=== PATIENT | male | born 1990 | race Caucasian/White ===

== ENCOUNTER 2019-03-21 21:00 | Emergency (ER) | payer OTHER ==
[2019-03-21] MEDS ORDERED: PREDNISONE 20 MG TABLET PO ONE (22:35)
[2019-03-21] MEDS ORDERED: EPINEPHRINE INJ/PF 1 MG/1 ML AMPULE IM ONE (22:35)
--- NOTE | 2019-03-21 22:40 | ER Document Report ---
ED Medical Screen (RME) - General Chief Complaint: Allergic Reaction Stated Complaint: POSSIBLE ALLERGIC REACTION Time Seen by Provider: 03/21/19 22:35 Notes: 28-year-old male chief complaint of allergic reaction. He reports swelling around his eyes, worse on the right, he woke up with this this morning, he took 50 mg of Benadryl around noon, he has not noticed improvement. He also has a faint rash along his forearms. He states he was out in the [place] [employer]. Denies difficulty breathing or swallowing. - Related Data Allergies/Adverse Reactions: No Known Allergies Allergy (Unverified 03/21/19 22:24) Past Medical History - Social History Frequency of alcohol use: Rare Drug Abuse: None Renal/ Medical History: Denies: Hx Peritoneal Dialysis Physical Exam - Vital signs Vitals: Temp Pulse Resp BP Pulse Ox 98.2 F 60 16 120/65 96 03/21/19 21:30 03/21/19 21:30 03/21/19 21:30 03/21/19 21:30 03/21/19 21:30 - HEENT Eyes: Other - Periorbital swelling of the eyelids and soft tissue, does not appear to have ocular involvement. Mouth/Lips: Normal. No: Angioedema Pharynx: No: Uvular edema, Potential airway comprom. Course - Re-evaluation Re-evalutation: Discussed with patient, will place on both steroids because he was crawling around in the [place] and given epinephrine because of his obvious facial/eyelid swelling though his airway is clear. I have greeted and performed a rapid initial assessment of this patient. A comprehensive ED assessment and evaluation of the patient, analysis of test results and completion of the medical decision making process will be conducted by additional ED providers. - Vital Signs Vital signs: Temp Pulse Resp BP Pulse Ox 98.2 F 60 16 120/65 96 03/21/19 21:30 03/21/19 21:30 03/21/19 21:30 03/21/19 21:30 03/21/19 21:30
--- NOTE | 2019-03-21 23:32 | ER Document Report ---
ED General - General Chief Complaint: Allergic Reaction Stated Complaint: POSSIBLE ALLERGIC REACTION Time Seen by Provider: 03/21/19 22:35 Notes: Patient is a pleasant 28-year-old male presents with complaint of some swelling around the eyes as well as rash that is pruritic. Rash is laying on the arms and lower torso. No tongue or lip swelling. No difficulty breathing or swallowing. Patient said yesterday was playing paintball was going around the [place]. He also stated a hotel and used a new kind of soap. He is unsure which one might of caused his symptoms. He did take some Benadryl at home. He has no other complaints at this time. - Related Data Allergies/Adverse Reactions: No Known Allergies Allergy (Unverified 03/21/19 22:24) Past Medical History - Social History Smoking Status: Former Smoker Frequency of alcohol use: Rare Drug Abuse: None Family History: Reviewed & Not Pertinent Patient has suicidal ideation: No Patient has homicidal ideation: No Renal/ Medical History: Denies: Hx Peritoneal Dialysis Review of Systems - Review of Systems Notes: My Normal Review Basic REVIEW OF SYSTEMS: CONSTITUTIONAL : Denies fever, chills, or sweats. Denies recent illness. EENT: Swelling around the eyes. No throat or tongue swelling. CARDIOVASCULAR: Denies chest pain. RESPIRATORY: Denies cough, cold, or chest congestion. Denies shortness of breath, difficulty breathing, or wheezing. GASTROINTESTINAL: Denies abdominal pain. Denies nausea, vomiting, or diarrhea. MUSCULOSKELETAL: Denies neck or back pain or joint pain or swelling. SKIN: Rash NEUROLOGICAL: Denies altered mental status or loss of consciousness. ALL OTHER SYSTEMS REVIEWED AND NEGATIVE. Physical Exam - Vital signs Vitals: Temp Pulse Resp BP Pulse Ox 98.2 F 60 16 120/65 96 03/21/19 21:30 03/21/19 21:30 03/21/19 21:30 03/21/19 21:30 03/21/19 21:30 - Notes Notes: General Appearance: Well nourished, alert, cooperative, no acute distress, no obvious discomfort. Well-appearing. Vitals: reviewed, See vital signs table. Head: no swelling or tenderness to the head Eyes: PERRL, EOMI, Conjuctiva clear. Faint redness and swelling to the eyelids. Mouth: No decreasd moisture Throat: No tonsillar inflammation, No airway obstruction, no pharyngeal or glossal swelling. Neck: Supple, no neck tenderness, No neck swelling Lungs: No wheezing, No rales, No rhonci, No accessory muscle use, good air exchange bilaterally. Heart: Normal rate, Regular rythm, No murmur, no rub Extremities: strength 5/5 in all extremities, good pulses in all extremities, no swelling or tenderness in the extremities, no edema. Skin: Small areas of faint redness that is easily blanchable and pruritic at over the arms as well as over the lower torso and flank. No blistering. Neuro: speech clear, oriented x 3, normal affect, responds appropriately to questions. Course - Re-evaluation Re-evalutation: 03/21/19 23:32 Patient has findings consistent with allergic reaction. Potentially is allergic to something that he can contact with and with such as poison hawa. Could also be reaction to soap. He does not have any signs of impending airway compromise. There is no lip or tongue swelling. No difficulty breathing or swallowing. He does have obvious swelling around the eyes. I encouraged him use antihistamine eyedrops. We will place him on tapering prednisone. Have him take Benadryl every 6 hours as needed for itching. I strongly encouraged him return to ER if he has any tongue or lip swelling, worsening of his rash or swelling around the eyes, or if he has any difficulty breathing whatsoever. Patient agrees with plan and will be discharged home. Dictation of this chart was performed using voice recognition software; therefore, there may be some unintended grammatical errors. - Vital Signs Vital signs: Temp Pulse Resp BP Pulse Ox 98.2 F 60 16 120/65 96 03/21/19 21:30 03/21/19 21:30 03/21/19 21:30 03/21/19 21:30 03/21/19 21:30 Discharge - Discharge Clinical Impression: Allergic reaction Qualifiers: Encounter type: initial encounter Qualified Code(s): T78.40XA - Allergy, unspecified, initial encounter Condition: Good Disposition: HOME, SELF-CARE Additional Instructions: Please take the prednisone as prescribed. You can also buy [id number] antihistamine eyedrops. These sometimes help with the swelling around the eyes. The 2 brands that are common are Zaditor and Allaway. I have also prescribed an EpiPen to use in case you have throat or tongue swelling. Please return to the ER immediately if you have to use theEpi pen, have facial swelling, tongue swelling, throat swelling, difficulty breathing, or feel that your reaction is becoming severe. Please use the Epi pen if you have any facial swelling, tongue swelling, or difficulty breathing. Take Benadryl 50 mg every 6 hours as needed for itching. Return to the ER if you have any worsening of her symptoms. Prescriptions: Prednisone [Deltasone 10 mg Tablet] 10 mg PO ASDIR PRN #36 tablet PRN Reason: Forms: Return to Work
[2019-03-21 23:41] VITALS: BP 126/68
== END 2019-03-21 23:50 | disposition home or self-care (01) ==
LOC: ER 21:00
DX: T78.40XA Allergy, unspecified, initial encounter (principal); R22.0 Localized swelling, mass and lump, head; R21 Rash and other nonspecific skin eruption; L29.8 Other pruritus; X58.XXXA Exposure to other specified factors, initial encounter; Z87.891 Personal history of nicotine dependence
CPT/HCPCS: 99283; 96372; J0171; J7512